=== PATIENT | male | born 1990 | race Caucasian/White ===

== ENCOUNTER 2017-03-03 19:42 | Emergency (ER) | payer BC ==
[~2017-03-03] VITALS: Ht 188 cm; Wt 74.8 kg
--- NOTE | 2017-03-03 20:00 | NUR ---
int assess: pt a/o x 4, breating ublabored, c/o 5/10 pain to lower abd with dysuria xs 1 week. denies any discharge
[2017-03-03 20:25] LABS: APPEARANCE,URINE Clear (CLEAR); BILIRUBIN,URINE Negative (NEGATIVE); BLOOD, URINE Small Ery/uL (NEGATIVE); COLOR,URINE Yellow (YELLOW); KETONES,URINE Negative (NEGATIVE); LEUKOCYTE ESTERASE ,URINE Negative (NEGATIVE); NITRITE, URINE Negative (NEGATIVE); PROTEIN,URINE Negative (NEGATIVE); UGLUCOSE Negative (NEGATIVE); UROBILINOGEN,URINE 0.2 EU/dL (0.2)
[2017-03-03 20:37] LABS: BACTERIA,URINE None seen /HPF (None Seen); SQUAMOUS EPITHELIAL CELL,UR Few /HPF (None Seen); WBC,URINE 0-2 /HPF (0-3)
[2017-03-03 21:15] VITALS: BP 140/84
== END 2017-03-03 21:17 | disposition home or self-care (01) ==
LOC: ER 19:42
DX: R30.0 Dysuria (principal)
CPT/HCPCS: 81001; 87086; 96372; 99284; A4606; J0696; J3490; Q0162; Z7610; 81000-TC